=== PATIENT | female | born 1960 | race Caucasian/White ===

== ENCOUNTER → 2016-07-25 | Outpatient (CLI) | payer MEDICARE, MEDICAID ==
[~2016-07-25] MED LIST: ISOVUE-370 76% 100ML VIAL (Q9967) As Ordered ONE
== END ==
LOC: M RAD 09:28
PROVIDERS: ATTEND Otolaryngology
DX: R19.6 Halitosis (principal)

== ENCOUNTER → 2019-08-31 | Outpatient (CLI) | payer MEDICARE, MEDICAID ==
[~2019-08-31] MED LIST changes: +ANAF50CA PO; +COLA100C5 PO; +DIAZ2TAB PO; +ESTR3TA PO; +HM S0.65; +HYDROXIZINE PO; +HYDROXYZINE PO; -ISOVUE-370 76% 100ML VIAL (Q9967) As Ordered ONE; +LINZ290C PO; +METO200T28 PO; +MIRA3350 PO; +NAPR-885 PO; +SERO50TA PO; +VALI2TAB PO
== END ==
LOC: M LABSMTC 13:55
PROVIDERS: ATTEND Anesthesiology
DX: Z01.818 Encounter for other preprocedural examination (principal); Z11.59 Encounter for screening for other viral diseases
CPT/HCPCS: C9803; U0003

== ENCOUNTER 2019-09-05 09:20 | Day surgery (SDC) | payer MEDICARE, MEDICAID ==
[~2019-09-05] VITALS: Ht 162.6 cm; Wt 48.3 kg
[~2019-09-05 09:20] MED LIST changes: -ANAF50CA PO; -COLA100C5 PO; -DIAZ2TAB PO; -ESTR3TA PO; -HM S0.65; -HYDROXIZINE PO; -HYDROXYZINE PO; +LIDOCAINE 2% 100MG/5ML SDV (FOR ANES.) As Ordered ONE; -LINZ290C PO; -METO200T28 PO; -MIRA3350 PO; -NAPR-885 PO; +NS 1,000 ML IV SCH; -SERO50TA PO; -VALI2TAB PO; +propofoL 200 MG/20 ML VIAL As Ordered ONE
[2019-09-05] MEDS ORDERED: METO200T28 PO (10:09)
[2019-09-05] MEDS ORDERED: HM S0.65 (10:09)
[2019-09-05] MEDS ORDERED: HYDROXYZINE PO (10:09)
[2019-09-05] MEDS ORDERED: DIAZ2TAB PO (10:09)
[2019-09-05] MEDS ORDERED: MIRA3350 PO (10:09)
[2019-09-05] MEDS ORDERED: COLA100C5 PO (10:09)
[2019-09-05] MEDS ORDERED: ANAF50CA PO (10:09)
[2019-09-05] MEDS ORDERED: VALI2TAB PO (10:09)
[2019-09-05] MEDS ORDERED: NAPR-885 PO (10:09)
[2019-09-05] MEDS ORDERED: ESTR3TA PO (10:09)
[2019-09-05] MEDS ORDERED: LINZ290C PO (10:09)
[2019-09-05] MEDS ORDERED: HYDROXIZINE PO (10:09)
[2019-09-05] MEDS ORDERED: SERO50TA PO (10:09)
--- NOTE | 2019-09-05 11:07 | ROOR ---
Patient Name: Anastasia Lama Procedure Date: 09/05/2019 10:34 AM Date of : 1960 Age: 59 Room: [facility] Gender: Female Note Status: Finalized Procedure: Colonoscopy Indications: Constipation Providers: Esdras COHEN MD Referring MD: Floresita RODRIGUEZ MD Requesting Provider: Medicines: Monitored Anesthesia Care Complications: No immediate complications. Procedure: Pre-Anesthesia Assessment: - The heart rate, respiratory rate, oxygen saturations, blood pressure, adequacy of pulmonary ventilation, and response to care were monitored throughout the procedure. The Colonoscope was introduced through the anus and advanced to 10 cm into the ileum. The colonoscopy was performed without difficulty. The patient tolerated the procedure well. The quality of the bowel preparation was good. The bowel preparation used was Trlyte. 2x4 liters/Neurogenic prep via split dose instruction. Findings: The perianal and digital rectal examinations were normal. A diminutive polyp was found in the sigmoid colon. The polyp was sessile. The polyp was removed with a cold snare. Resection and retrieval were complete. Mild sigmoid diverticulosis and small internal hemorrhoids. The exam was otherwise without abnormality. Impression: - One diminutive polyp in the sigmoid colon, removed with a cold snare. Resected and retrieved. - Mild sigmoid diverticulosis and small internal hemorrhoids. - The colon and terminal ileum examination were otherwise normal. Recommendation: - Continue present medications. - Repeat colonoscopy in 5 years for surveillance. Esdras Cohen MD Esdras COHEN MD 09/05/2019 11:07:28 AM Electronically signed by Esdras COHEN MD Number of Addenda: 0 Note Initiated On: 09/05/2019 10:34 AM Estimated Blood Loss: Estimated blood loss: none.
[2019-09-05 11:25] VITALS: BP 149/80
== END 2019-09-05 11:45 | disposition home or self-care (01) ==
LOC: M OPP 09:20
PROVIDERS: ATTEND Internal Medicine Gastroenterology
DX: K63.5 Polyp of colon (principal); K57.30 Diverticulosis of large intestine without perforation or abscess without bleeding; K59.00 Constipation, unspecified; Z79.899 Other long term (current) drug therapy; Z88.8 Allergy status to other drugs, medicaments and biological substances

== ENCOUNTER 2020-11-08 11:11 | Observation (INO) | payer MEDICARE, MEDICAID ==
[~2020-11-08] VITALS: Ht 160 cm; Wt 41.5 kg
[~2020-11-08 11:11] MED LIST changes: +ANAF50CA PO; +COLA100C5 PO; +DIAZ2TAB PO; +ESTR3TA PO; +HM S0.65 NARES; +HYDROXIZINE PO; +HYDROXYZINE PO; -LIDOCAINE 2% 100MG/5ML SDV (FOR ANES.) As Ordered ONE; +LINZ290C PO; +METO200T28 PO; +MIRA3350 PO; +NAPR-885 PO; -NS 1,000 ML IV SCH; +SERO50TA PO; +VALI2TAB PO; -propofoL 200 MG/20 ML VIAL As Ordered ONE
--- NOTE | 2020-11-08 17:42 | REP ---
INDICATION: esophageal stricture, not tolerating PO COMPARISON: None. TECHNIQUE: PA/Lateral FINDINGS: Lungs: Clear, no infiltrate. Heart: Normal in size. Mediastinum: Mediastinal silhouette unremarkable. Pleural angles: Unremarkable.. Bones and soft tissues: There are degenerative changes of the spine. IMPRESSION: No acute pulmonary disease. <Electronically signed by Gabino Otero > 11/08/20 [id number]
[2020-11-08 18:03] LABS: BASO % 0.4 % (0.0-1.0); EOS # 0.1 10^3/uL (0.0-0.5); EOS % 0.7 % (0.0-3.0); HEMOGLOBIN 11.1 g/dl (12.0-15.5); LYMPH % 20.2 % (24.0-44.0); MEAN CORPUSCULAR HEMOGLOBIN 27.7 pg (27.0-33.0); MEAN CORPUSCULAR HGB CONC 31.7 g/dl (32.0-36.5); MEAN CORPUSCULAR VOLUME 87.3 fl (80.0-96.0); MONO # 0.5 10^3/uL (0.0-0.8); MONO % 4.7 % (2.0-8.0); NEUTROPHILS # 7.4 10^3/uL (1.5-8.5); PLATELET COUNT, AUTOMATED 361 10^3/uL (150-450); RED BLOOD COUNT 4.01 10^6/uL (4.00-5.40); WHITE BLOOD COUNT 10.1 10^3/uL (4.0-10.0)
[2020-11-08 18:14] LABS: INR 0.96; PROTHROMBIN TIME 13.2 SECONDS (12.7-14.5)
[2020-11-08 18:15] LABS: PARTIAL THROMBOPLASTIN TIME 28.3 SECONDS (25.9-37.0)
[2020-11-08 18:25] LABS: ALBUMIN 3.2 GM/DL (3.2-5.2); ALT/SGPT 18 U/L (12-78); BILIRUBIN,DIRECT < 0.1 MG/DL (0.0-0.2); BILIRUBIN,TOTAL 0.4 MG/DL (0.2-1.0); BLOOD UREA NITROGEN 20 MG/DL (7-18); CALCIUM LEVEL 8.7 MG/DL (8.8-10.2); CARBON DIOXIDE LEVEL 29 MEQ/L (21-32); CHLORIDE LEVEL 105 MEQ/L (98-107); CREATININE FOR GFR 0.61 MG/DL (0.55-1.30); GLOMERULAR FILTRATION RATE > 60.0 (>45); GLUCOSE, FASTING 75 MG/DL (70-100); LIPASE 69 U/L (73-393); SODIUM LEVEL 142 MEQ/L (136-145); TOTAL PROTEIN 7.2 GM/DL (6.4-8.2)
[2020-11-08] MEDS ORDERED: ISOVUE-370 76% 100ML VIAL As Ordered ONE (19:16)
[2020-11-08 19:45] LABS: RSV AMPLIFICATION NEGATIVE (NEGATIVE)
--- NOTE | 2020-11-08 19:50 | HPEPDOC ---
General Date of Admission 11/08/20 Date of Service: Nov 08, 2020 Chief Complaint The patient is a 60-year-old female admitted with a reason for visit of Vomiting. Source: EMS notes reviewed, longterm records History of Present Illness Anastasia Lama is a 60-year-old female with significant history of mental handicap and esophageal stricture who presents with difficulty swallowing thin liquids. Patient has plans to have EGD done at [facility] however given her decreasing ability to tolerate p.o. safely arrives to hospital tonight. Sitter from [facility] in which pt resides reports pt coughs whenever we tries to eat, describes pt with clear mucus if productive at times. No reports SOB or pain. Pt is mostly nonverbal- she is able to report "I want to go home", but does not otherwise converse. During exam, pt did become anxious and began pacing room- limiting HPI details and majority history obtained from chart. Pt did attempt to bite her sitter. She has no teeth and sitter reports this happens at times when she becomes fearful or upset. GI consulted by ED with recommendations for scope and a.m. if CT neck and chest without constriction to support scope tonight. Of note, patient with mild leukocytosis 10.1 and elevated BUN 20 creatinine 0.61. Chest x-ray nonacute. CT neck and chest pending Patient will be observed for further evaluation management presenting concerns. Home Medications Scheduled Clomipramine HCl (Anafranil) 50 Mg Capsule, 50 MG PO QHS, (Reported) Diazepam (Valium) 2 Mg Tablet, 2 MG PO ASDIRECTED, (Reported) USE BEFORE PROCEDURES Diazepam (Diazepam) 10 Mg Tablet, 10 MG PO QHS, (Reported) Estrogens, Conjugated (Premarin) 0.45 Mg Tablet, 0.45 MG PO DAILY, (Reported) Ferrous Fumarate (Ferretts) 325 Mg Tablet, 325 MG PO BID, (Reported) Linaclotide (Linzess) 290 Mcg Capsule, 290 MCG PO DAILY, (Reported) Metoprolol Succinate (Metoprolol Succinate) 25 Mg Tab.er.24h, 25 MG PO BID, (Reported) Pantoprazole Sodium (Pantoprazole Sodium) 40 Mg Tablet.dr, 40 MG PO DAILY, (Reported) Polyethylene Glycol 3350 (Miralax) 119 Gm Powder, 17 GRAM PO BID for constipation, (Reported) dissolve in water Quetiapine Fumarate (Seroquel) 50 Mg Tablet, 50 MG PO QHS, (Reported) TAKEN WITH 200MG Quetiapine Fumarate (Quetiapine Fumarate) 200 Mg Tablet, 200 MG PO QHS, (Reported) TAKEN WITH 50MG Scheduled PRN Sodium Chloride (Saline Nasal Jefferson) 44 Ml Jefferson, 1 SPRAY NARES Q4H PRN for CONGESTION, (Reported) Allergies Coded Allergies: chlorpromazine (Unverified Allergy, Unknown, 09/02/19) haloperidol (Unverified Allergy, Unknown, 09/02/19) mesoridazine (Unverified Allergy, Unknown, 09/02/19) thioridazine (Unverified Allergy, Unknown, 09/02/19) thiothixene (Unverified Allergy, Unknown, 09/02/19) Past Medical History Medical History Hypertension, mental handicap, history of esophageal stricture, IMAN, obstipation, hearing loss, anxiety Surgical History D&C, hysterectomy, left trigger finger release, colonoscopy, teeth extraction Family History Unknown Social History * Smoker: Denies Alcohol: Denies Drugs: denies Recent Travel/Sick Contacts: Denies: Recent travel, Recent sick contacts Psychosocial History: Anxiety, Mental handicap Patient resides in [facility] facility where she has 08/09 attendants A-FIB/CHADSVASC A-FIB History Current/History of A-Fib/PAF?: No Current PO Anticoag Therapy: No Review of Systems Other systems UNOBTAINABLE Physical Examination General Exam: Positive: Alert, No Acute Distress, Other (Frail-appearing); Negative: Cooperative Eye Exam: Positive: PERRLA, Conjunctiva & lids normal, EOMI; Negative: Sclera icteric ENT Exam: Positive: Atraumatic, Mucous membr. moist/pink, Pharynx Normal Neck Exam: Positive: Supple; Negative: JVD, thyromegaly Chest Exam: Positive: Clear to auscultation, Normal air movement Heart Exam: Positive: Rate Normal, Regular Rhythm, Normal S1, Normal S2; Negative: Murmurs, Rubs Telemetry: Positive: No significant arrhythmia Abdomen Exam: Positive: Normal bowel sounds, Soft; Negative: Tenderness, Hepatospenomegaly Extremity Exam: Positive: Normal pulses; Negative: Clubbing, Cyanosis, Edema Skin Exam: Positive: Nl turgor and temperature; Negative: Breakdown, Lesion Neuro Exam: Positive: Normal Gait, Normal Speech, Cranial Nerves 3-12 NL, Reflexes 2+ Psych Exam: Positive: Mood NL, Anxiety (Patient actively pacing room and expressing anxiety stating "I want to go home"), Other (Unable to determine orientation given nonverbal ); Negative: Mental status NL, Oriented x 3 Vital Signs Vital Signs Date Time Temp Pulse Resp B/P (MAP) Pulse Ox O2 Delivery O2 Flow Rate FiO2 11/08/20 11:11 97.7 76 18 108/65 (79) 92 Room Air Laboratory Data Labs 24H Laboratory Tests 2 11/08/20 17:35: Immature Granulocyte % (Auto) 1.0, Neutrophils (%) (Auto) 73.0H, Lymphocytes (%) (Auto) 20.2L, Monocytes (%) (Auto) 4.7, Eosinophils (%) (Auto) 0.7, Basophils (%) (Auto) 0.4, Neutrophils # (Auto) 7.4, Lymphocytes # (Auto) 2.0, Monocytes # (Auto) 0.5, Eosinophils # (Auto) 0.1, Basophils # (Auto) 0.0, Nucleated Red Blood Cells % (auto) 0.0, Prothrombin Time 13.2, Prothromb Time International Ratio 0.96, Activated Partial Thromboplast Time 28.3, Anion Gap 8, Glomerular Filtration Rate > 60.0, Calcium Level 8.7L, Total Bilirubin 0.4, Direct Bilirubin < 0.1, Aspartate Amino Transf (AST/SGOT) 16, Alanine Aminotransferase (ALT/SGPT) 18, Alkaline Phosphatase 93, Total Protein 7.2, Albumin 3.2, Albumin/Globulin Ratio 0.8L, Lipase 69L 11/08/20 18:54: CBC/BMP Laboratory Tests 11/08/20 17:35 Assessment/Plan 1. Difficulty swallowing 2/2 esophageal stricture: Patient with known history of esophageal stricture. CT chest with two thirds esophageal narrowing but no overt obstruction. There is concern for esophagitis vs esophageal mass. Discussed w/ GI and plan for scope in a.m. Aspiration precautions, n.p.o. for scope We will hydrate given patient with elevated BUN and unable to take p.o. Protonix IV A.m. labs Appreciate GI recommendations post scope. 2. Leukocytosis: Mild WBC 10.1. No overt systemic signs of infection. Chest x- ray nonacute. Patient tolerating room air. CT chest with opacities inflammatory versus infectious. Patient likely aspirated given above. Will check procalcitonin and consider empiric coverage 3. Anemia: Hemoglobin 11.1, no previous lab work on file. Plan for anemia panel. Monitor for any overt blood loss and H&H. Med recc review shoes iron supplement. Plan to continue once pt taking PO. 4. HTN: Monitor BP in setting of above. Patient to receive hydration. P.o. medications held presently given aspiration precautions. Patient blood pressure on softer side consider continuation with parameters once taking p.o. 5. Chronic otomastoiditis: As noted on CT neck. ?cholesteatoma in pt with known hearing loss. Plan for hearing impairment communication techniques. Encourage patient for ENT follow-up outpatient. 6. Anxiety in nonverbal pt with baseline Cognitive impairment: Monitor patient and mood, encourage nonpharmacologic methods to manage and pt expression with body language. De-escalation techniques accordingly. Consider as needed antianxiety medication as patient unable to take p.o. and she typically takes Valium according to home med rec.will order sitter given patient anxiety level in room she could benefit from redirection and soothing presence. Encourage patients known sitter from [facility] to stay with patient as she would do better with a known caregiver. 7. Constipation: Patient last had BM yesterday. Continue home medications once tolerating p.o. DVT Px: SCDs CODE Status: FULL Dispo planning: Return to [facility] once able to tolerate diet Plan / VTE VTE Prophylaxis Ordered?: Yes SANTOSH BRADLEY NP Nov 08, 2020 19:42
[2020-11-08] MEDS ORDERED: PREM0.45 PO (20:02)
[2020-11-08] MEDS ORDERED: DIAZ10TA2 PO (20:02)
[2020-11-08] MEDS ORDERED: METO1TAB32 PO (20:02)
[2020-11-08] MEDS ORDERED: QUET200T2 PO (20:09)
[2020-11-08] MEDS ORDERED: FERR325T15 PO (20:09)
--- NOTE | 2020-11-08 20:12 | REPVR ---
PROCEDURE INFORMATION: Exam: CT Neck With Contrast Exam date and time: 11/08/2020 7:29 PM Age: 60 years old Clinical indication: Dysphagia / difficulty swallowing; Additional info: Dysphagia, h/o esophageal stricture- gi recommendation TECHNIQUE: Imaging protocol: Computed tomography images of the neck with contrast. Radiation optimization: All CT scans at this facility use at least one of these dose optimization techniques: automated exposure control; mA and/or kV adjustment per patient size (includes targeted exams where dose is matched to clinical indication); or iterative reconstruction. Contrast material: ISOVUE 370; Contrast volume: 100 ml; Contrast route: INTRAVENOUS (IV); COMPARISON: CR Chest, 2 view PA, Lat 11/08/2020 5:09 PM FINDINGS: Mastoid air cells: Fluid noted in the left mastoid air cells. Hypo pneumatization of the left mastoid Hypo pneumatization of the right mastoid with soft tissue opacification. Auditory system: Fluid noted in the right middle ear. The ossicles are not seen in the right middle ear. Fluid and or soft tissue in the left middle ear encasing the ossicles. Nasopharynx: Unremarkable. Dental: The patient is edentulous Oropharynx: Unremarkable. No significant tonsillar enlargement. Hypopharynx: Unremarkable. Larynx: Unremarkable. Normal epiglottis. Retropharyngeal space: Unremarkable. Submandibular/Parotid glands: Normal. Glands are normal in size. Thyroid: Normal. No enlarged or calcified nodules. Lymph nodes: Unremarkable. No lymphadenopathy. Trachea: Visualized trachea is unremarkable. Lungs: Unremarkable as visualized. Bones/joints: Unremarkable. No acute fracture. Soft tissues: Unremarkable. No significant soft tissue swelling. IMPRESSION: Bilateral otomastoiditis. Hypopneumatization of the mastoids and absence of ossicle in right middle ear suggest this may be chronic. Clinical correlation needed. Bilateral cholesteatoma should be considered. Electronically signed by: Meron Floyd On 11/08/2020 20:11:28 PM
[2020-11-08] MEDS ORDERED: diazePAM 10MG/2ML SYRINGE (J3360 PER 5MG) IV ONE (20:15)
[2020-11-08] MEDS ORDERED: SODIUM CHLORIDE NASAL 0.65% SPRAY BTL (OCEAN) PRN (20:15)
[2020-11-08] MEDS ORDERED: HOME MED LIST COMPLETE! XX SCH (20:15)
[2020-11-08] MEDS ORDERED: PANT40TA29 PO (20:27)
--- NOTE | 2020-11-08 20:29 | REPVR ---
PROCEDURE INFORMATION: Exam: CT Chest With Contrast; Diagnostic Exam date and time: 11/08/2020 7:29 PM Age: 60 years old Clinical indication: Other: Dysphagia; Additional info: Dysphagia, h/o esophageal stricture- gi recommendation TECHNIQUE: Imaging protocol: Diagnostic computed tomography of the chest with contrast. 3D rendering (Not supervised by radiologist): MIP and/or 3D reconstructed images were created by the technologist. Radiation optimization: All CT scans at this facility use at least one of these dose optimization techniques: automated exposure control; mA and/or kV adjustment per patient size (includes targeted exams where dose is matched to clinical indication); or iterative reconstruction. Contrast material: ISOVUE 370; Contrast volume: 100 ml; Contrast route: INTRAVENOUS (IV); COMPARISON: CR Chest, 2 view PA, Lat 11/08/2020 5:09 PM FINDINGS: Lungs: There are subtle ground-glass opacities in both lungs in a nonspecific distribution. No masses are seen. Airways are clear. Pleural spaces: Unremarkable. No pneumothorax. No pleural effusion. Heart: Unremarkable. No cardiomegaly. No pericardial effusion. Mediastinal space: There is wall thickening and edema in the distal 2/3 of the esophagus. Proximal esophagus is mildly distended with air. Esophageal lumen is narrow in the area of wall thickening. A discrete esophageal mass is not identified. Small hiatal hernia. No obstructing lesion in the lumen. Aorta: Unremarkable. No aortic aneurysm. Lymph nodes: Unremarkable. No enlarged lymph nodes. Gallbladder and bile ducts: Multiple calculi in the gallbladder. Bones/joints: Unremarkable. No acute fracture. Soft tissues: Unremarkable. IMPRESSION: 1. Circumferential wall thickening and edema in the distal 2/3 of the esophagus with narrowing of the distal esophageal lumen. Possible esophagitis versus esophageal malignancy. 2. Subtle ground-glass opacities in the lungs. Possible aspiration versus atypical/infectious alveolitis or interstitial lung disease. No pulmonary masses. Electronically signed by: Robel Blake On 11/08/2020 20:28:50 PM
[2020-11-08 22:40] VITALS: BP 128/80
[2020-11-09] MEDS: diazePAM 10MG/2ML SYRINGE (J3360 PER 5MG) IV PRN ×2 (00:16→11:21)
[2020-11-09] MEDS: PANTOPRAZOLE 40MG VIAL (C9113 PER 1) IV SCH ×2 (00:21→08:45)
[2020-11-09] MEDS: D5W/0.45% SODIUM CHLORIDE 1,000 ML IV SCH ×2 (00:25→08:45)
[2020-11-09] MEDS ORDERED: OLANZapine INTRAMUSCULAR 10MG VIAL IM ONE (01:35)
[2020-11-09] MEDS ORDERED: OLANZapine INTRAMUSCULAR 10MG VIAL IM PRN (04:00)
[2020-11-09 05:17] VITALS: BP 124/80
[2020-11-09 05:25] LABS: BASO % 0.5 % (0.0-1.0); EOS % 0.4 % (0.0-3.0); HEMATOCRIT 33.9 % (36.0-47.0); HEMOGLOBIN 10.6 g/dl (12.0-15.5); LYMPH # 2.5 10^3/uL (1.5-5.0); LYMPH % 31.8 % (24.0-44.0); MEAN CORPUSCULAR HEMOGLOBIN 27.6 pg (27.0-33.0); MEAN CORPUSCULAR HGB CONC 31.3 g/dl (32.0-36.5); MEAN CORPUSCULAR VOLUME 88.3 fl (80.0-96.0); MONO # 0.5 10^3/uL (0.0-0.8); MONO % 6.7 % (2.0-8.0); NEUTROPHILS # 4.7 10^3/uL (1.5-8.5); PLATELET COUNT, AUTOMATED 350 10^3/uL (150-450); RED BLOOD COUNT 3.84 10^6/uL (4.00-5.40); WHITE BLOOD COUNT 7.9 10^3/uL (4.0-10.0)
[2020-11-09 05:50] LABS: BLOOD UREA NITROGEN 21 MG/DL (7-18); CALCIUM LEVEL 8.5 MG/DL (8.8-10.2); CARBON DIOXIDE LEVEL 25 MEQ/L (21-32); CHLORIDE LEVEL 107 MEQ/L (98-107); CHOLESTEROL RISK RATIO 3.303 (<5); CREATININE FOR GFR 0.67 MG/DL (0.55-1.30); FERRITIN 223 NG/ML (8-252); GLOMERULAR FILTRATION RATE > 60.0 (>45); GLUCOSE, FASTING 66 MG/DL (70-100); IRON (FE) 62 UG/DL (50-170); PERCENT SATURATION 22.4 % (13.2-45.0); SODIUM LEVEL 142 MEQ/L (136-145); TOTAL IRON BINDING CAPACITY 277 UG/DL (250-450)
[2020-11-09 10:00] LABS: VITAMIN B12 LEVEL 1321 PG/ML (247-911)
[2020-11-09 10:01] LABS: FOLATE 18.8 NG/ML (>5.4)
[2020-11-09 14:00] VITALS: BP 120/70
[2020-11-09] MEDS ORDERED: fentaNYL 100 MCG/2 ML INJECTION (J3010) As Ordered ONE (14:43)
[2020-11-09] MEDS ORDERED: MIDAZOLAM INJ 2MG/2ML VIAL (J2250 PER 1MG) As Ordered ONE (14:44)
[2020-11-09] MEDS ORDERED: LIDOCAINE 2% 100MG/5ML SDV (FOR ANES.) As Ordered ONE (15:06)
[2020-11-09] MEDS ORDERED: propofoL 200 MG/20 ML VIAL As Ordered ONE (15:06)
--- NOTE | 2020-11-09 16:10 | ROOR ---
Patient Name: Anastasia Lama Procedure Date: 11/09/2020 3:14 PM Date of : 1960 Age: 60 Room: [facility] Gender: Female Note Status: Finalized Procedure: Upper GI endoscopy Indications: Dysphagia, Abnormal CT of the GI tract Providers: Esdras Nelson MD Referring MD: 2. Inpatient 2. Inpatient, Soraya Moreno NP, Den Russell DO Requesting Provider: Medicines: Monitored Anesthesia Care Complications: No immediate complications. Procedure: Pre-Anesthesia Assessment: - The heart rate, respiratory rate, oxygen saturations, blood pressure, adequacy of pulmonary ventilation, and response to care were monitored throughout the procedure. The Endoscope was introduced through the mouth, and advanced to the second part of duodenum. The upper GI endoscopy was performed with difficulty due to narrowing. The patient tolerated the procedure well. Findings: One severe (stenosis; an endoscope cannot pass) stenosis was found in the lower third of the esophagus. This stenosis measured 6 mm (inner diameter) x 8 cm (in length). The stenosis was traversed after downsizing scope and dilating. A TTS dilator was passed through the scope. Dilation with an 8-9-10 mm balloon dilator was performed to 10 mm. A single medium mucosal nodule was found at the gastroesophageal junction. Biopsies were taken with a cold forceps for histology. The entire examined stomach was normal. The examined duodenum was normal. Impression: - Severe, 8 cm long distal half esophageal stenosis. Partially dilated to 10 mm. (passable with ultraslim scope only) - Inflammatory appearing mucosal nodularity found in the distal esophagus/GE junction. Biopsied. - Moderate esophagitis, biopsied. - Normal stomach. - Normal examined duodenum. Recommendation: - Clear liquid diet and full liquid diet indefinitely. - Use a proton pump inhibitor PO daily indefinitely. - Await pathology results. - Repeat upper endoscopy at appointment to be scheduled for retreatment. - Todays dilation is hopefully functional for liquid diet, but will need further dilation in the near future. I would recommend that further dilations be performed at tertiary care center with immedeiate availability of a Thoracic surgeon. Procedure Code(s): --- Professional --- 40367, Esophagogastroduodenoscopy, flexible, transoral; with transendoscopic balloon dilation of esophagus (less than 30 mm diameter) 59190, 59, Esophagogastroduodenoscopy, flexible, transoral; with biopsy, single or multiple Diagnosis Code(s): --- Professional --- R93.3, Abnormal findings on diagnostic imaging of other parts of digestive tract R13.10, Dysphagia, unspecified K22.8, Other specified diseases of esophagus K22.2, Esophageal obstruction CPT copyright 2019 [employer]. All rights reserved. The codes documented in this report are preliminary and upon gold leaf roller review may be revised to meet current compliance requirements. Esdras Nelson MD Esdras Nelson MD 11/09/2020 4:10:27 PM Electronically signed by Esdras Nelson MD Number of Addenda: 0 Note Initiated On: 11/09/2020 3:14 PM Estimated Blood Loss: Estimated blood loss: none.
[2020-11-09 16:30] VITALS: BP 140/80
[2020-11-09] MEDS ORDERED: diazePAM 2 MG TAB PO PRN (16:45)
--- NOTE | 2020-11-09 16:46 | IPNPDOC ---
Text Note Date of Service The patient was seen on 11/09/20. NOTE SUBJECTIVE: Patient is a 60-year-old female with significant history of mental handicap and esophageal stricture who presented with difficulty swallowing thin liquids. Patient had plans to have EGD done at [facility], however given her decreasing ability to tolerate p.o. safely, [facility]. Sitter from senior care in which pt resides reports pt coughs whenever we tries to eat, describes pt with clear mucus if productive at times. No reports SOB or pain. Pt is mostly nonverbal- she is able to report "I want to go home", but does not otherwise converse. Pt did attempt to bite her sitter. She has no teeth and sitter reports this happens at times when she becomes fearful or upset Patient is being watched by a sitter who works for the home the patient resides at. She reported that she was told patient did not have any pain overnight (per sitter, patient hits herself in the head with her hand when she is in pain). The patient is not eating or drinking. No vomiting or diarrhea was reported. He did have a bowel movement overnight. She also pulled out her IV twice over the course of the night. She has been brought to the OR for EGD and esophageal dilation if needed OBJECTIVE: General: 60-year-old female, occasionally flailing around in bed, and hitting herself in the head when frustrated, accompanied by her sitter. Patient is nonverbal which is made this physical exam difficult Cardiac: Regular rate and rhythm Respiratory: Clear to auscultation bilaterally Extremities: Appropriate motion in all 4 extremities Neuro: 5 out of 5 strength in all 4 extremities Of note, patient did grab my wrist firmly during the physical exam. It was at this time, I decided to discontinue exam in order to not cause continued stress per the patient. ASSESSMENT AND PLAN: 1. Difficulty swallowing 2/2 esophageal stricture: Patient with known history of esophageal stricture. -CT chest with two thirds esophageal narrowing but no overt obstruction. -Concern for esophagitis vs esophageal mass -Aspiration precautions, n.p.o. for scope -We will hydrate given patient with elevated BUN and unable to take p.o. -Protonix IV -A.m. labs -Upper GI endoscopy was performed. -Area of stenosis of 6 mm (diameter) x 8 cm (length) was found in the lower third of the esophagus. -Was only able to be dilated to 10 mm. -Single medium, inflammatory mucosal nodule was found in the GE junction -Biopsies were taken and sent for histological analysis. -Remaining duodenum was normal and the entire stomach was normal as well. -Begin clear liquid diet due to narrow esophageal diameter of 10 mm -Restart home meds only they can be crushed -Add liquid PPI 2. Leukocytosis: -Resolved white blood cells now 7.9. No overt systemic signs of infection. -Chest x-ray nonacute. Patient tolerating room air. -CT chest with opacities inflammatory versus infectious. -Patient likely aspirated given above. -Procalcitonin 0.05 indicating low risk for progression to severe sepsis and or septic shock.Will check procalcitonin and consider empiric coverage 3. Anemia: -Hemoglobin 11.1, no previous lab work on file. Plan for anemia panel. -Monitor for any overt blood loss and H&H. Med recc review shoes iron supplement. -Plan to continue once pt taking PO. 4. HTN: -Monitor BP in setting of above. -Patient to receive hydration. -P.o. medications held presently given aspiration precautions. -Patient blood pressure on softer side consider continuation with parameters once taking p.o. 5. Chronic otomastoiditis: -As noted on CT neck. ?cholesteatoma in pt with known hearing loss. -Plan for hearing impairment communication techniques. -Encourage patient for ENT follow-up outpatient. 6. Anxiety in nonverbal pt with baseline Cognitive impairment: -Monitor patient and mood, encourage nonpharmacologic methods to manage and pt expression with body language. -De-escalation techniques accordingly. -Consider as needed anti-anxiety medication as patient unable to take p.o. and she typically takes Valium according to home med rec. -Will order sitter given patient anxiety level in room she could benefit from redirection and soothing presence. -Encourage patients known sitter from senior care to stay with patient as she would do better with a known caregiver. 7. Constipation: Patient last had BM yesterday. VS,Fishbone, I+O VS, Fishbone, I+O Laboratory Tests 11/08/20 17:35 11/09/20 05:08 Vital Signs Date Time Temp Pulse Resp B/P (MAP) Pulse Ox O2 Delivery O2 Flow Rate FiO2 11/09/20 14:00 100 18 120/70 (87) 95 Room Air 11/09/20 05:17 97.6 I&O- Last 24 Hours up to 6 AM 11/09/20 06:00 Intake Total 120 ml Balance 120 ml GME ATTESTATION GME ATTESTATION My faculty preceptor for this patient encounter was physically present during the encounter and was fully available. All aspects of the patient interview, examination, medical decision making process, and medical care plan development were reviewed and approved by the faculty preceptor. The faculty preceptor is aware and concurs with the plan as stated in the body of this note and will attest to such by his/her cosignature. ATTENDING NOTE I, Chet Bull, have independently examined this patient and performed my own physical exam, as well as reviewed the documentation and edited where necessary. I have discussed in detail with the resident / student the findings and plan of treatment as documented by the resident / student and edited their note. I agree with their findings and treatment plan and have edited their documentation. I will continue to follow the patient during this hospital stay. Kirk Pedro DO Nov 09, 2020 16:46 CHET BULL MD Nov 09, 2020 18:07
[2020-11-09 17:00] VITALS: BP 143/74
[2020-11-09 19:46] VITALS: BP 143/74
[2020-11-09] MEDS: METOPROLOL TART 25 MG TABLET PO SCH (19:46)
[2020-11-09] MEDS: MIRALAX *UNIT DOSE* 17GM PACKET PO SCH (19:47)
[2020-11-09] MEDS ORDERED: QUEtiapine FUMARATE 50MG TAB PO SCH (21:00)
[2020-11-09] MEDS ORDERED: diazePAM 5MG TABLET PO SCH (21:00)
[2020-11-09] MEDS ORDERED: QUEtiapine FUMARATE 200 MG TAB PO SCH (21:00)
[2020-11-09 21:56] VITALS: BP 152/65
[2020-11-10 06:57] LABS: BASO # 0.1 10^3/uL (0.0-0.2); BASO % 0.5 % (0.0-1.0); EOS # 0.1 10^3/uL (0.0-0.5); EOS % 1.3 % (0.0-3.0); HEMATOCRIT 34.2 % (36.0-47.0); HEMOGLOBIN 10.5 g/dl (12.0-15.5); LYMPH # 1.6 10^3/uL (1.5-5.0); LYMPH % 15.5 % (24.0-44.0); MEAN CORPUSCULAR HEMOGLOBIN 27.3 pg (27.0-33.0); MEAN CORPUSCULAR HGB CONC 30.7 g/dl (32.0-36.5); MEAN CORPUSCULAR VOLUME 88.8 fl (80.0-96.0); MONO # 0.6 10^3/uL (0.0-0.8); MONO % 6.1 % (2.0-8.0); NEUTROPHILS # 7.6 10^3/uL (1.5-8.5); NEUTROPHILS % 75.6 % (36.0-66.0); PLATELET COUNT, AUTOMATED 349 10^3/uL (150-450); RED BLOOD COUNT 3.85 10^6/uL (4.00-5.40)
[2020-11-10 07:20] LABS: BLOOD UREA NITROGEN 12 MG/DL (7-18); CALCIUM LEVEL 8.8 MG/DL (8.8-10.2); CARBON DIOXIDE LEVEL 32 MEQ/L (21-32); CHLORIDE LEVEL 104 MEQ/L (98-107); CREATININE FOR GFR 0.56 MG/DL (0.55-1.30); GLOMERULAR FILTRATION RATE > 60.0 (>45); GLUCOSE, FASTING 101 MG/DL (70-100); POTASSIUM SERUM 3.9 MEQ/L (3.5-5.1); SODIUM LEVEL 140 MEQ/L (136-145)
[2020-11-10] MEDS ORDERED: OMEPRAZOLE SUSPENSION 20MG 10ML ORAL SYRINGE GT SCH (09:00)
[2020-11-10] MEDS: METOPROLOL TART 25 MG TABLET PO SCH (09:00)
[2020-11-10] MEDS: MIRALAX *UNIT DOSE* 17GM PACKET PO SCH (09:31)
[2020-11-10 09:37] VITALS: BP 106/74
[2020-11-10] MEDS ORDERED: ANAF50CA PO (10:10)
[2020-11-10] MEDS ORDERED: QUET200T2 PO (10:22)
[2020-11-10] MEDS ORDERED: PREM0.45 PO (10:22)
[2020-11-10] MEDS ORDERED: SERO50TA PO (10:22)
[2020-11-10] MEDS ORDERED: VALI2TAB PO (10:22)
[2020-11-10] MEDS ORDERED: DIAZ10TA2 PO (10:22)
[2020-11-10] MEDS ORDERED: FERR5ELX PO (10:22)
[2020-11-10] MEDS ORDERED: METO1TAB87 PO (10:28)
[2020-11-10] MEDS ORDERED: ESOM40SU PO (10:28)
--- NOTE | 2020-11-10 12:37 | DS.PDOC ---
Discharge Summary General Date of Admission Nov 08, 2020 at 11:12 Date of Discharge Nov 10, 2020 Attending Physician: CHET VALENZUELA MD Specialist/Consultants Involve: JOSHUA NELSON MD Discharge Summary PROCEDURES PERFORMED DURING STAY: EGD with esophageal dilation. ADMITTING DIAGNOSES: 1. Vomiting secondary to difficulty swallowing due to esophageal stricture 2. Leukocytosis 3. Anemia 4. Hypertension 5. Chronic otomastoiditis 6. Anxiety and nonverbal patient with baseline cognitive impairment 7. Constipation DISCHARGE DIAGNOSES: 1. Vomiting secondary to difficulty swallowing due to esophageal stricture - vomiting resolved 2. Leukocytosis - resolved 3. Anemia -ongoing 4. Hypertension - controlled 5. Chronic otomastoiditis 6. Anxiety and nonverbal patient with baseline cognitive impairment 7. Constipation - resolved COMPLICATIONS/CHIEF COMPLAINT: Esophageal Stricture. HISTORY OF PRESENT ILLNESS: Anastasia Lama is a 60-year-old female with significant history of mental handicap and esophageal stricture who presented with difficulty swallowing thin liquids. Patient has plans to have EGD done at [facility] however given her decreasing ability to tolerate p.o. safely arrived to hospital 11/08/2020. [facility]itter from [facility] which pt resides reported pt coughs whenever we tries to eat, described pt with clear mucus if productive at times. No reports SOB or pain. Pt is mostly nonverbal- she is able to report "I want to go home", but does not oth erwise converse. During exam, pt did become anxious and began pacing room- limiting HPI details and majority history obtained from chart. Pt did attempt to bite her sitter. She has no teeth and sitter reports this happens at times when she becomes fearful or upset. GI consulted by ED with recommendations for scope and a.m. if CT neck and chest without constriction to support scope 11/09/2020. HOSPITAL COURSE: 11/08/2020: Admitted for evaluation and management. GI consulted and recommended an EGD with dilation to take place on the . 11/09/2020: Patient NPO by surgery. No vomiting or diarrhea was reported. Bowel movements were also reported. EGD was performed by Dr. Nelson who found the area of stenosis measuring 6 mm in diameter to 8 cm in length. He was able to dilate that area to 10 mm only. He advised switching to a full liquid diet and switching to liquid medications like a PPI. He said further dilation will be needed but should be done at a tertiary care center with immediate availability of a thoracic surgeon. 11/10/2020: - Per patient's caregiver, Pedrito, patient was restless overnight still hitting herself again but settled down around 5 AM. - Patient was adjusted to a clear liquid diet, which was better tolerated - Patient was reported to have urinated and had a tiny bowel movement. - The details of the procedure were explained to caregiver and the importance of keeping the patient's appointment at [facility] 11/21 was stressed and he understood this. --> Explained to caregiver that further dilation would be a risky procedure to complete at [facility] given that there is no cardiothoracic surgery available if there were complications - The discharge instructions were also explained to the patient's caregiver. - Patient has been instructed to remain on a strict clear liquid diet and all medications are to be crushed / provided in liquid form DISCHARGE MEDICATIONS: Please see below. ALLERGIES: Please see below. PHYSICAL EXAMINATION ON DISCHARGE: Limited due to patient cooperation VITAL SIGNS: Please see below. GENERAL: 60-year-old female, sitting in chair obsessively tying her shoes, in no acute distress, last approached by providers, then becomes anxious HEENT: Normocephalic atraumatic CARDIOVASCULAR EXAMINATION: Regular rate and rhythm RESPIRATORY EXAMINATION: No abnormal lung sounds were auscultated; difficult to hear clearly due to patient cooperation LABORATORY DATA: Please see below. IMAGING: Chest x-ray 11/08/2020: No acute pulmonary disease Neck CT 11/08/2020: Bilateral otomastoiditis. Hypopneumatization of the mastoids and absence of ossicle in right middle ear suggest this may be chronic. Clinical correlation needed. Bilateral cholesteatoma should be considered. Head CT 11/08/2020: 1) Circumferential wall thickening and edema in the distal 2/3 of the esophagus with narrowing of the distal esophageal lumen. Possible esophagitis versus esophageal malignancy. 2) Subtle ground-glass opacities in the lungs. Possible aspiration versus atypical/infectious alveolitis or inter stitial lung disease. No pulmonary masses. PROGNOSIS: Stable ACTIVITY: [As tolerated]. DIET: Clear liquid diet DISPOSITION: Home to jail with caregiver assistance DISCHARGE INSTRUCTIONS AND ITEMS TO FOLLOW-UP ON OUTPATIENT #Very important that patient keep appointment on November [address] [facility] for further assessment of esophageal stricture. Caregiver has received a print out of procedure description for 11/09/2020 EGD with dilation to assist with continuity of care. 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 #Thank you for allowing us to be part of this patient's care DISCHARGE CONDITION: [Stable]. TIME SPENT ON DISCHARGE: 40 minutes. Vital Signs/I&Os Vital Signs Date Time Temp Pulse Resp B/P (MAP) Pulse Ox O2 Delivery O2 Flow Rate FiO2 11/10/20 09:37 69 106/74 (85) 11/10/20 06:00 97.8 20 11/09/20 21:56 96 Room Air I&O- Last 24 Hours up to 6 AM 11/10/20 06:00 Intake Total 700 ml Balance 700 ml Laboratory Data Labs 24H Laboratory Tests 2 11/09/20 12:56: Bedside Glucose (Misc Panel) 62L 11/09/20 16:46: Bedside Glucose (Misc Panel) 50L 11/09/20 17:44: Bedside Glucose (Misc Panel) 131H 11/09/20 23:49: Bedside Glucose (Misc Panel) 124H 11/10/20 05:18: Bedside Glucose (Misc Panel) 94 11/10/20 06:42: Immature Granulocyte % (Auto) 1.0, Neutrophils (%) (Auto) 75.6H, Lymphocytes (%) (Auto) 15.5L, Monocytes (%) (Auto) 6.1, Eosinophils (%) (Auto) 1.3, Basophils (%) (Auto) 0.5, Neutrophils # (Auto) 7.6, Lymphocytes # (Auto) 1.6, Monocytes # (Auto) 0.6, Eosinophils # (Auto) 0.1, Basophils # (Auto) 0.1, Nucleated Red Blood Cells % (auto) 0.0, Anion Gap 4L, Glomerular Filtration Rate > 60.0, Calcium Level 8.8 CBC/BMP Laboratory Tests 11/10/20 06:42 FSBS Laboratory Tests Test 11/09/20 12:56 11/09/20 16:46 11/09/20 17:44 11/09/20 23:49 Range/Units Bedside Glucose (Misc Panel) 62 50 131 124 80-115 MG/DL Test 11/10/20 05:18 Range/Units Bedside Glucose (Misc Panel) 94 80-115 MG/DL Discharge Medications Scheduled Diazepam (Valium) 2 Mg Tablet, 2 MG PO ASDIRECTED USE BEFORE PROCEDURES; Must crush medication Diazepam (Diazepam) 10 Mg Tablet, 10 MG PO QHS Must crush medication Esomeprazole Magnesium (Esomeprazole Magnesium) 40 Mg Suspdr.pkt, 40 MG PO DAILY Estrogens, Conjugated (Premarin) 0.45 Mg Tablet, 0.45 MG PO DAILY Must crush medication Ferrous Sulfate (Ferrous Sulfate) 220 Mg/5 Ml Elixir, 220 MG PO BID Metoprolol Tartrate (Metoprolol Tartrate) 25 Mg Tablet, 25 MG PO BID Must crush medication Polyethylene Glycol 3350 (Miralax) 119 Gm Powder, 17 GRAM PO BID for constipa tion, (Reported) dissolve in water Quetiapine Fumarate (Seroquel) 50 Mg Tablet, 50 MG PO QHS TAKEN WITH 200MG; must crush medication Quetiapine Fumarate (Quetiapine Fumarate) 200 Mg Tablet, 200 MG PO QHS TAKEN WITH 50MG; must crush medication Scheduled PRN Sodium Chloride (Saline Nasal Durham) 44 Ml [place], 1 SPRAY NARES Q4H PRN for CONGESTION, (Reported) Allergies Coded Allergies: chlorpromazine (Unverified Allergy, Unknown, 09/02/19) haloperidol (Unverified Allergy, Unknown, 09/02/19) mesoridazine (Unverified Allergy, Unknown, 09/02/19) thioridazine (Unverified Allergy, Unknown, 09/02/19) thiothixene (Unverified Allergy, Unknown, 09/02/19) GME ATTESTATION GME ATTESTATION My faculty preceptor for this patient encounter was physically present during the encounter and was fully available. All aspects of the patient interview, examination, medical decision making process, and medical care plan development were reviewed and approved by the faculty preceptor. The faculty preceptor is aware and concurs with the plan as stated in the body of this note and will atte st to such by his/her cosignature. ATTENDING NOTE I, Chet Valenzuela, have independently examined this patient and performed my own physical exam, as well as reviewed the documentation and edited where necessary. I have discussed in detail with the resident / student the findings and plan of treatment as documented by the resident / student and edited their note. I a gree with their findings and treatment plan and have edited their documentation. I will continue to follow the patient during this hospital stay. Kirk Pedro DO Nov 10, 2020 12:37 CHET VALENZUELA MD Nov 10, 2020 13:13
== END 2020-11-10 11:45 | disposition home or self-care (01) ==
LOC: M ED 11:11 → M ED INP 11:12 → UNDOADMOB 19:27 → M ED INP 19:27 → ENRESERV 21:22 → M MS5PR 22:40
PROVIDERS: ADMIT Family Medicine; ATTEND Family Medicine
DX: K22.2 Esophageal obstruction (principal); K22.8 Other specified diseases of esophagus; K20.90 Esophagitis, unspecified without bleeding; R13.10 Dysphagia, unspecified; R93.3 Abnormal findings on diagnostic imaging of other parts of digestive tract; R11.10 Vomiting, unspecified; D72.829 Elevated white blood cell count, unspecified; D50.9 Iron deficiency anemia, unspecified; I10 Essential (primary) hypertension; H70.13 Chronic mastoiditis, bilateral; F41.9 Anxiety disorder, unspecified; G31.84 Mild cognitive impairment of uncertain or unknown etiology; R41.841 Cognitive communication deficit; K59.00 Constipation, unspecified; H91.90 Unspecified hearing loss, unspecified ear; Z79.899 Other long term (current) drug therapy; Z88.8 Allergy status to other drugs, medicaments and biological substances
CPT/HCPCS: 36415; 43239; 43249; 70491; 71046; 71260; 80048; 80061; 80076; 82607; 82728; 82746; 83550; 83690; 84145; 85025; 85610; 85730; 87631; 88305; 96372; 96374; 96375; 96376; 99284; C9113; G0378; J2250; J3010; J3360; Q9967